=== PATIENT | male | born 1950 | race Caucasian/White ===

== ENCOUNTER 2021-05-27 09:09 | Outpatient (CLI) | payer MEDICARE, OTHER | END 2021-05-27 09:10 | disposition home or self-care (01) | LOC: CSHCT 09:09 | PROVIDERS: ATTEND Family Medicine | DX: Z12.2 Encounter for screening for malignant neoplasm of respiratory organs (principal); F17.210 Nicotine dependence, cigarettes, uncomplicated; R91.8 Other nonspecific abnormal finding of lung field | CPT/HCPCS: 71271 ==

== ENCOUNTER 2021-06-24 10:13 | Outpatient (CLI) | payer MEDICARE, OTHER | END 2021-06-24 10:14 | disposition home or self-care (01) | LOC: CSHCT 10:13 | PROVIDERS: ATTEND Family Medicine | DX: G89.4 Chronic pain syndrome (principal); M47.812 Spondylosis without myelopathy or radiculopathy, cervical region; M50.90 Cervical disc disorder, unspecified, unspecified cervical region; M50.30 Other cervical disc degeneration, unspecified cervical region; M48.02 Spinal stenosis, cervical region | CPT/HCPCS: 72125 ==

== ENCOUNTER 2021-07-15 09:21 | Outpatient (CLI) | payer MEDICARE, OTHER | END 2021-07-15 09:22 | disposition home or self-care (01) | LOC: CSHCT 09:21 | PROVIDERS: ATTEND Internal Medicine | DX: R91.8 Other nonspecific abnormal finding of lung field (principal) | CPT/HCPCS: 71260; 82565 ==

== ENCOUNTER 2021-07-29 13:23 | Outpatient (CLI) | payer MEDICARE, OTHER ==
[2021-07-30 07:50] LABS: SARS-CoV-2 PCR by NAA DETECTED (NotDetected)
== END 2021-07-29 13:24 | disposition home or self-care (01) ==
LOC: CSHLAB 13:23
PROVIDERS: ATTEND Internal Medicine
DX: U07.1 COVID-19 (principal); C34.12 Malignant neoplasm of upper lobe, left bronchus or lung
CPT/HCPCS: U0003; U0005

== ENCOUNTER 2021-09-20 07:30 | Day surgery (SDC) | payer MEDICARE, OTHER ==
[2021-09-20] MEDS ORDERED: Lidocaine 1% PF 5 ML VIAL ONE (07:56)
[2021-09-20] MEDS ORDERED: Sodium Bicarbonate 2.5 MEQ/5 ML VIAL ONE (07:56)
[2021-09-20 08:42] VITALS: BP 158/82; TEMP 99.2
[2021-09-20] MEDS ORDERED: Iopamidol-M 300 61% 15 ML VIAL ONE (15:01)
== END 2021-09-20 09:45 | disposition home or self-care (01) ==
LOC: CSHRAD 07:30
PROVIDERS: ATTEND Neurological Surgery
DX: M43.12 Spondylolisthesis, cervical region (principal); M50.10 Cervical disc disorder with radiculopathy, unspecified cervical region; M47.22 Other spondylosis with radiculopathy, cervical region; Z79.899 Other long term (current) drug therapy; Z79.02 Long term (current) use of antithrombotics/antiplatelets; Z79.82 Long term (current) use of aspirin; F32.A Depression, unspecified; Z95.810 Presence of automatic (implantable) cardiac defibrillator; H40.9 Unspecified glaucoma; I10 Essential (primary) hypertension
CPT/HCPCS: 62302; 72050; 72126; Q9967

== ENCOUNTER 2021-10-09 09:53 | Observation (INO) | payer MEDICARE, OTHER ==
[2021-10-09] MEDS ORDERED: Fentanyl 100 MCG/2 ML VIAL ONE (11:18)
[2021-10-09 11:39] LABS: #Basophils 0.1 10x3/uL (0.0-0.2); #Eosinphils 0.2 10x3/uL (0.0-0.5); #Monocytes 0.8 10x3/uL (0.0-1.1); #Neutrophils 6.9 10x3/uL (1.5-8.4); %Basophils 0.9 % (0.0-2.0); %Eosinophils 1.6 % (0.0-6.0); %Lymphocytes 13.7 % (18.0-47.0); %Monocytes 8.5 % (0.0-10.0); %Neutrophils 74.9 % (40.0-75.0); Hemoglobin 11.5 g/dL (13.5-17.5); Mean Corpuscular HGB CONC 33.7 g/dL (32.0-36.0); Mean Corpuscular Hemoglobin 31.9 pg (27.0-33.0); Mean Corpuscular Volume 94.7 fl (81.2-95.1); Mean Platelet Volume 9.8 fl (7.4-10.4); Platelet Count 244 10x3/uL (150-450); RBC Distribution Width 13.5 % (11.5-14.5); White Blood Cell (WBC) Count 9.2 10x3/uL (3.5-10.5)
[2021-10-09 11:52] LABS: ALT (SGPT) 10 U/L (8-55); AST (SGOT) 23 U/L (5-34); Albumin 3.6 g/dL (3.4-4.8); Alkaline Phosphatase 76 U/L (40-110); Anion Gap 12 mmol/L (10-20); BUN (Urea Nitrogen) 8 mg/dL (8.4-25.7); Bilirubin, Total 0.5 mg/dL (0.2-1.2); CK (CPK) 48 U/L (30-200); Calc. Creatinine Clearance 0 mL/min (70-130); Calcium 9.5 mg/dL (7.8-10.44); Carbon Dioxide 25 mmol/L (23-31); Chloride 101 mmol/L (98-107); Globulin 2.7 g/dL (2.4-3.5); Glucose 108 mg/dL (80-115); Protein, Total 6.3 g/dL (5.8-8.1); Sodium 134 mmol/L (136-145)
[2021-10-09 14:18] VITALS: BMI 16.6
[2021-10-09] MEDS ORDERED: HYDROcodone/Acetaminophen 5/325 mg Tablet PO PRN (14:27)
[2021-10-09] MEDS ORDERED: Acetaminophen 325 MG TAB PO PRN (14:27)
[2021-10-09] MEDS ORDERED: Enoxaparin Sodium 30 MG/0.3 ML SYRINGE SC SCH (14:30)
[2021-10-09] MEDS ORDERED: traZODone HCl 50 MG TAB PO PRN (14:32)
[2021-10-09] MEDS: HYDROcodone/Acetaminophen 5/325 mg Tablet PO PRN ×2 (14:47→20:20)
[2021-10-09] MEDS ORDERED: Morphine 2 MG/ML VIAL SLOW IVP PRN (16:44)
[2021-10-09] MEDS ORDERED: Morphine 4 MG/ML VIAL SLOW IVP PRN (16:44)
[2021-10-09] MEDS: Ketorolac Tromethamine 30 MG/ML VIAL IVP SCH ×2 (17:48→23:53)
[2021-10-09] MEDS ORDERED: Calcium Carbonate 500 MG ChewTAB PO PRN (20:11)
[2021-10-09] MEDS: Gabapentin 300 MG CAP PO SCH (20:20)
[2021-10-10] MEDS: Ketorolac Tromethamine 30 MG/ML VIAL IVP SCH ×4 (06:04→23:47)
[2021-10-10] MEDS: HYDROcodone/Acetaminophen 5/325 mg Tablet PO PRN ×3 (06:08→20:45)
[2021-10-10] MEDS: Lisinopril 20 MG TAB PO SCH (09:12)
[2021-10-10] MEDS: Tamsulosin HCl 0.4 MG CAP PO SCH (09:12)
[2021-10-10] MEDS: Gabapentin 300 MG CAP PO SCH ×2 (09:12→20:42)
[2021-10-10] MEDS: Amlodipine 5 MG TAB PO SCH (09:12)
[2021-10-11] MEDS: Ketorolac Tromethamine 30 MG/ML VIAL IVP SCH ×2 (05:41→13:01)
[2021-10-11] MEDS: Gabapentin 300 MG CAP PO SCH (09:49)
[2021-10-11] MEDS: Amlodipine 5 MG TAB PO SCH (09:49)
[2021-10-11] MEDS: Tamsulosin HCl 0.4 MG CAP PO SCH (09:50)
[2021-10-11] MEDS: Lisinopril 20 MG TAB PO SCH (09:50)
[2021-10-11] MEDS: HYDROcodone/Acetaminophen 5/325 mg Tablet PO PRN (09:57)
[2021-10-11 12:51] VITALS: BP 134/80; TEMP 98.2
== END 2021-10-11 14:15 | disposition home or self-care (01) ==
LOC: CSHERS 09:53 → CSHTELE 13:57
PROVIDERS: ADMIT Surgery; ATTEND Surgery
DX: J93.9 Pneumothorax, unspecified (principal); Z79.899 Other long term (current) drug therapy; Z79.02 Long term (current) use of antithrombotics/antiplatelets; F17.210 Nicotine dependence, cigarettes, uncomplicated; C34.91 Malignant neoplasm of unspecified part of right bronchus or lung; G70.00 Myasthenia gravis without (acute) exacerbation; F32.A Depression, unspecified
CPT/HCPCS: 71045 ×3; 71046; 80053; 82550; 84484; 85025; 93005; 96372; 96374; 96375; 96376 ×3; 97139 ×5; 99285; G0378 ×4; J1650; J1885; J2270; J3010

== ENCOUNTER 2021-10-21 11:48 | Outpatient (CLI) | payer MEDICARE, OTHER ==
[2021-10-21 20:00] LABS: SARS-CoV-2 PCR by NAA Not Detected (NotDetected)
== END 2021-10-21 11:49 | disposition home or self-care (01) ==
LOC: CSHLAB 11:48
PROVIDERS: ATTEND Surgery
DX: Z01.818 Encounter for other preprocedural examination (principal); Z20.822 Contact with and (suspected) exposure to COVID-19
CPT/HCPCS: 71046; U0003; U0005

== ENCOUNTER 2021-10-23 05:33 | Day surgery (SDC) | payer MEDICARE, OTHER ==
[2021-10-21 13:50] VITALS: BMI 16.7
[2021-10-23] MEDS ORDERED: EPINEPHrine 1 MG/ML AMP ONE (06:15)
[2021-10-23] MEDS ORDERED: Bupivacaine 0.25% HCL 30 ML VIAL ONE (06:15)
[2021-10-23] MEDS ORDERED: Lidocaine 1% MPF 2 ML VIAL ONE (06:33)
[2021-10-23] MEDS ORDERED: Ondansetron PF 4 MG/2 ML Vial ONE (06:52)
[2021-10-23] MEDS ORDERED: Midazolam HCl 2 mg/2 ml Vial ONE (06:52)
[2021-10-23] MEDS ORDERED: PROPOFOL 20 ML ONE (06:52)
[2021-10-23] MEDS ORDERED: Lidocaine 1% PF 5 ML VIAL ONE (06:52)
[2021-10-23] MEDS ORDERED: Fentanyl 100 MCG/2 ML VIAL ONE (06:52)
[2021-10-23] MEDS ORDERED: ceFAZolin 2 GM/Dextrose 50 ML IVPB ONE (06:54)
[2021-10-23] MEDS ORDERED: PHENYLEPHRINE-NS 100 MCG/ML 10 ML SYRINGE ONE (07:10)
[2021-10-23] MEDS ORDERED: ePHEDrine Sulfate 50 MG/10 ML VIAL ONE (07:11)
[2021-10-23] MEDS ORDERED: Acetaminophen 325 MG TAB PO PRN (08:01)
[2021-10-23] MEDS ORDERED: HYDROcodone/Acetaminophen 5/325 mg Tablet PO PRN ×2 (08:01)
== END 2021-10-23 08:45 | disposition home or self-care (01) ==
LOC: CSHSDC 05:33
PROVIDERS: ATTEND Surgery
DX: C34.12 Malignant neoplasm of upper lobe, left bronchus or lung (principal); M47.12 Other spondylosis with myelopathy, cervical region; Z79.82 Long term (current) use of aspirin; Z79.899 Other long term (current) drug therapy; F32.A Depression, unspecified
CPT/HCPCS: 36561; C1788; J0171; J0690; J1642; J2250; J2405; J2704; J3010; J3490; S0020

== ENCOUNTER 2022-01-10 16:40 | Emergency (ER) | payer MEDICARE, OTHER ==
[2022-01-10] MEDS ORDERED: Morphine 4 MG/ML VIAL ONE (18:07)
[2022-01-10] MEDS ORDERED: Fentanyl 100 MCG/2 ML VIAL ONE (18:11)
== END 2022-01-10 18:55 | disposition home or self-care (01) ==
LOC: CSHERS 16:40
DX: M65.4 Radial styloid tenosynovitis [de Quervain] (principal); F17.210 Nicotine dependence, cigarettes, uncomplicated
CPT/HCPCS: 96372; J2270; J3010

== ENCOUNTER 2022-01-13 08:03 | Outpatient (CLI) | payer MEDICARE, OTHER ==
[2022-01-13] MEDS ORDERED: Iopamidol 300 61% 100 ML VIAL FS ONE (09:27)
== END 2022-01-13 08:04 | disposition home or self-care (01) ==
LOC: CSHCT 08:03
PROVIDERS: ATTEND Internal Medicine Hematology & Oncology
DX: C34.92 Malignant neoplasm of unspecified part of left bronchus or lung (principal); J90 Pleural effusion, not elsewhere classified; J98.6 Disorders of diaphragm; R91.8 Other nonspecific abnormal finding of lung field; J85.0 Gangrene and necrosis of lung
CPT/HCPCS: 71260; 82565